=== PATIENT | female | born 1960 | race Caucasian/White ===

== ENCOUNTER 2019-05-21 16:13 | Emergency (ER) | payer MEDICARE, OTHER ==
--- NOTE | 2019-05-21 17:01 | ED Physician Documentation ---
PD HPI ANIMAL BITE - Stated complaint Stated Complaint: CAT BITE R WRIST - Chief complaint Chief Complaint: General - History obtained from History obtained from: Patient - History of Present Illness Location of injury(ies): RUE (proximal hand and distal forearm) Details of the event: Cat Timing - onset: How many days ago (3) Timing - duration: Days (3) Timing - details: Gradual onset (bit by cat 3 days ago and has had progressive redness and swelling the past 2 days. States she does not like antibiotics, so requests liquid version. Able to take other pills.) Worsened by: Moving, Palpating Associated symptoms: Swelling, Discolored (red). No: Weakness, Numbness Contributing factors: No: Immunocompromised Review of Systems Constitutional: denies: Fever, Chills Neurologic: denies: Focal weakness, Numbness PD PAST MEDICAL HISTORY - Past Medical History Past Medical History: Yes Cardiovascular: None Respiratory: COPD - Past Surgical History Past Surgical History: No - Present Medications Home Medications: Ambulatory Orders Medication Instructions Recorded Confirmed Amoxicillin/Potassium Clav 750 mg PO BID #180 ml 05/21/19 [Augmentin 250-62.5 mg/5 ml] Hydrocodone/Acetaminophen [[place] 1 each PO TID PRN #15 tablet 05/21/19 7.5-325 Tablet] - Allergies Allergies/Adverse Reactions: Allergies Allergy/AdvReac Type Severity Reaction Status Date / Time No Known Drug Allergies Allergy Verified 05/21/19 16:29 - Social History Does the pt smoke?: No Smoking Status: Never smoker Does the pt drink ETOH?: No Does the pt have substance abuse?: No - Immunizations Immunizations are current?: Yes - POLST Patient has POLST: No PD ED PE NORMAL - Vitals Vital signs reviewed: Yes - General General: Alert and oriented X 3, Well developed/nourished - Cardiac Cardiac: RRR, No murmur - Respiratory Respiratory: Clear bilaterally - Derm Derm: Normal color, Warm and dry - Extremities Extremities: Other (right hand and wrist with redness and swelling mostly over dorsal aspect. Puncture without focal fluctuance nor drainage. She has stiff mo vement of wrist. Able to flex/extend fingers stiffly but not painfully. ) - Neuro Neuro: Alert and oriented X 3, No motor deficit, No sensory deficit, Normal spe ech, Other (good color and cap refill in fingers. ) Results - Vitals Vitals: Vital Signs - 24 hr 05/21/19 05/21/19 16:26 18:00 Temperature 37.5 C Heart Rate 107 H 63 Respiratory 16 16 Rate Blood Pressure 149/80 H 128/79 O2 Saturation 95 94 Oxygen O2 Source Room air - Rads (name of study) right wrist xray Radiology: Prelim report reviewed, EMP read contemporaneously (no FB, fractures, nor soft tissue air. ), See rad report PD MEDICAL DECISION MAKING - ED course Complexity details: considered differential (skin with good swelling and redness, but not having symptoms to suggest synovitis. ), d/w patient Departure - Departure Disposition: 01 Home, Self Care Clinical Impression: Infected cat bite of forearm Qualifiers: Encounter type: initial encounter Laterality: right Qualified Code(s): S51.851A - Open bite of right forearm, initial encounter Condition: Stable Record reviewed to determine appropriate education?: Yes Instructions: ED Bite Cat Follow-Up: Ricky Dennis [Primary Care Provider] - Prescriptions: Amoxicillin/Potassium Clav [Augmentin 250-62.5 mg/5 ml] 750 mg PO BID #180 ml Hydrocodone/Acetaminophen [[place] 7.5-325 Tablet] 1 each PO TID PRN #15 tablet PRN Reason: Pain Comments: Use the wrist splint to protect motion. Use some warm moist towels or compresses to the infection area to improve blood flow and help fight off the infection. Augmentin antibiotic twice daily. I wrote for the liquid oral version as you requested. I also wrote for some pain medicine to use periodically as needed. Less activity and use with the wrist for the next few days. Continue ibuprofen 2-3 times a day for inflammation. Recheck if not improving well over the next 2 to 3 days return sooner if worsening. Forms: Activity restrictions Discharge Date/Time: 05/21/19 18:00
[2019-05-21] MEDS ORDERED: AMOX/CLAV 200 MG/28.5 MG/5 ML SYRINGE PO STA (17:15)
[2019-05-21] MEDS ORDERED: HYDROcodone/ACETAM 7.5 MG/325 MG 15 ML UDC PO STA (17:15)
--- NOTE | 2019-05-21 17:46 | XRAY Report ---
Reason: cat bit wrist with swelling Procedure Date: 05/21/2019 Accession Number: [id number] / [id number] Procedure: XR - Wrist 3 View RT CPT Code: Final Report FULL RESULT: EXAM: RIGHT WRIST RADIOGRAPHY EXAM DATE: 05/21/2019 05:19 PM. CLINICAL HISTORY: Cat bit wrist with swelling. COMPARISON: None. TECHNIQUE: 3 views. FINDINGS: Bones: No fractures or bone lesions. Mild decreased osseous mineralization subjectively. Joints: No subluxations. Soft Tissues: No radiopaque foreign bodies. Soft tissue swelling about the radial aspect of the wrist. IMPRESSION: 1. No acute osseous abnormalities. 2. Mild diffuse decreased osseous mineralization subjectively. 3. No radiopaque foreign bodies. 4. Mild soft tissue swelling about the radial aspect of the wrist. [facility]
[2019-05-21 18:02] VITALS: BP 128/79
== END 2019-05-21 18:00 | disposition home or self-care (01) ==
LOC: ED 16:13
DX: S51.851A Open bite of right forearm, initial encounter (principal); L08.9 Local infection of the skin and subcutaneous tissue, unspecified; W55.01XA Bitten by cat, initial encounter
CPT/HCPCS: 73110; 99283; A9270

== ENCOUNTER 2021-02-13 13:51 | Outpatient (CLI) | payer OTHER, MEDICARE | END 2021-02-13 13:52 | disposition home or self-care (01) | LOC: COV 13:51 | PROVIDERS: ATTEND Family Medicine | DX: R05 Cough (principal); R06.02 Shortness of breath; M79.10 Myalgia, unspecified site; R53.83 Other fatigue; R07.0 Pain in throat; R09.81 Nasal congestion; J34.89 Other specified disorders of nose and nasal sinuses; Z20.822 Contact with and (suspected) exposure to COVID-19 ==